=== PATIENT | female | born 1985 | race Caucasian/White ===

== ENCOUNTER → 2017-05-02 17:08 | Outpatient (REF) | payer MEDICAID, SELFPAY | LOC: LAB 17:08 | PROVIDERS: Visit Provider Nurse Practitioner Obstetrics & Gynecology | DX: Z34.90 Encounter for supervision of normal pregnancy, unspecified, unspecified trimester (principal) | CPT/HCPCS: 86403 ==

== ENCOUNTER 2017-05-15 01:19 | Inpatient (IN) ==
[2017-05-15 05:35] VITALS: BP 114/68
[2017-05-15 06:04] LABS: Basophils % 0.3 % (0.1-2.0); Eosinophils # 0.2 K/mm3 (0.0-0.4); Eosinophils % 1.8 % (0.1-12.0); Hematocrit 35.7 % (37.0-47.0); Hemoglobin 11.6 g/dL (12.2-16.2); Lymphocytes # 2.5 K/mm3 (0.7-4.5); Lymphocytes % 26.4 K/mm3 (10-50); Mean Corpuscular HGB Conc 32.4 g/dL (31.8-35.4); Mean Corpuscular Hemoglobin 29.4 pg (27.0-31.2); Mean Corpuscular Volume 90.6 fl (81-99); Mean Platelet Volume 9.8 fl (7.4-10.4); Monocytes # 0.5 K/mm3 (0.1-1.0); Monocytes % 5.7 % (1.7-9.3); Neutrophils # 6.2 K/mm3 (1.8-7.8); Neutrophils % 65.7 % (37.0-80.0); Platelet Count 236 K/mm3 (142-424); Red Blood Count 3.94 M/mm3 (4.20-5.40); Red Cell Distribution Width 13.2 % (11.5-17.5); White Blood Count 9.5 K/mm3 (4.8-10.8)
--- NOTE | 2017-05-15 07:51 | History & Physical Report ---
OB - H&P: HPI Antepartum - History of Present Illness Chief complaint: term - History of Present Criteria for establishing EDC:: LMP confirmed by 2nd trimester US care: good care Ultrasounds: normal 1st trimester US, normal mid trimester US Obstetrical complications: none, other Medical complications: none Planning to breastfeed?: No [facility] History I have reviewed the patient's past medical history: Yes Medical History: Denies:: Diabetes Mellitus Type 1, MRSA Other Surgeries: Yes: No Previous Surgery, Dilation and Curettage Amputation: No Fractures: No - *Social History Educational Level: Completed High School Smoking Status: Former smoker Tobacco Type: cigarettes # Packs/Day (cigarettes): 1 #Yrs smoked (if former smoker): 12 Alcohol Intake: never Alcohol Intake Frequency:: holidays/special occasions only Substance Use Type: former substance user Occupational Status: employed Household Members: significant other - Psychiatric History Expresses thoughts of harming self/others: None Suicide Plan Description: No Plan *Family Hx:: No significant family history, Cancer, Diabetes, Hypertension, Hyperlipidemia, Asthma, Heart Attack, Stroke [employer] history: Abnormal Uterine Bleeding, Spontaneous Para: 2 Review of Systems - Review of Systems Review of systems:: pertinent systems reviewed and negative unless documented below Meds Home Medications Medication Instructions Recorded Confirmed Type ferrous sulfate 325 mg (65 mg 325 mg PO DAILY tab 02/16/17 05/15/17 History iron) tablet 1 tab PO QDAY 02/16/17 05/15/17 History vitamin,calcium,bqwnfyhh-oztt-mfjho acid tablet Allergies Allergy/AdvReac Type Severity Reaction Status Date / Time Penicillins [PENICILLINS] Allergy Unknown I-HIVES Verified 04/17/17 10:06 OB - H&P: Exam - Physical Exam Vital signs: Temp Pulse Resp BP Pulse Ox 97.9 F 90 18 114/68 98 05/15/17 05:25 05/15/17 05:25 05/15/17 05:25 05/15/17 05:25 05/15/17 05:25 - Constitutional no acute distress OB - Results - Labs Labs: Short CBC 05/15/17 Range/Units 05:50 WBC 9.5 (4.8-10.8) K/mm3 Hgb 11.6 L (12.2-16.2) g/dL Hct 35.7 L (37.0-47.0) % Plt Count 236 (142-424) K/mm3 OB - A/P Antepartum - Additional Plan Plan: expectant management (She is having a few contractions we have started oxytocin)
--- NOTE | 2017-05-15 07:53 | Progress Note ---
Labor Note - Subjective: Date: 05/15/17 Time: 07:52 regular contraction - Objective: NST:: Reactive Contractions:: every 4-5 minutes Cervical Dilation:: 2-3 Effacement:: 75% Station: -1 Membranes: articially ruptured - Fetus: Monitoring?: Yes monitoring type:: Internal and External Comment:: IUPC inserted - Assessment: Labor progressing?: Yes Cephalopelvic disproportion?: No Patient Problems: All Active Problems (Acute) - Plan: Anesthesia for epidural?: No Continue to labor down?: Yes Plan for ?: No Continue to monitor?: Yes Start pushing?: No
[2017-05-15 08:26] LABS: Microscopic, Urine URINE MICROSCOPIC (MICROSCOPIC)
[2017-05-15 08:28] LABS: Appearance,Urine CLEAR (Clear); Bilirubin,Urine Negative (Negative); Blood, Urine Negative (Negative); Color,Urine YELLOW (Yellow); Glucose,Urine (UA) Negative (Negative); Ketones,Urine Negative (Negative); Leukocyte Esterase,Urine Negative (Negative); Protein,Urine Negative (Negative)
[2017-05-15 08:35] LABS: Amphetamine/Metha Screen,Urine Negative ng/mL (<1000); Barbiturates Screen,Urine Negative ng/mL (<200); Benzodiazepines Screen,Urine Negative ng/mL (200); Cannabinoid Screen,Urine Negative ng/mL (<50); Cocaine Screen,Urine Negative ng/g (<300); Methadone Screen,Urine Negative ng/mL (<300); Opiate Screen,Urine Negative ng/mL (<300); Phencyclidine Screen,Urine Negative ng/mL (<25)
[2017-05-15 08:50] LABS: Bacteria,Urine 2+ /lpf; Squamous Epithelial Cell,Urine 20-50 #/hpf (0-5)
--- NOTE | 2017-05-15 09:58 | Progress Note ---
[facility] Anesthesia Checklist - Patient Identification Patient Identification: Arm Band, Verbal (Name & ) - Structural Data Admitted From: Inpatient Planned Operative Procedure/s: labor epidural Consent for Planned Operative Procedure(s) Verified: Yes Verified Documents: Surgical Consent, History and Physical - Chart Verification Results Verified: CBC, BMP - Additional verifications Patient : Yes Anesthesia Reactions: No Hx Blood Transfusions: No Blood Transfusion Reaction: No Cephalosporin Allergy: No Previous Colonoscopy: No - Cardiovascular Assessment Heart Sounds: S1 & S2 Pulse Strength: Baseline Pulse Rhythm: Regular - Airway Assessment C-Spine Mobility Assessed: No TMJ Mobility Assessed: No Dentition: Good Dentition - Neurological Assessment Level of Consciousness: Awake, Alert, Appropriate Hx Seizures: No Numbness or tingling in extremities: No - Anesthesia Plan Anesthesia Risk discussed: Yes Anesthesia Plan: Verified ASA Class: II Anesthesia Type: Epidural [facility] Anesthesia HX I have reviewed the patient's past medical history: Yes Medical History: Denies:: Diabetes Mellitus Type 1, MRSA Other Surgeries: Yes: No Previous Surgery, Dilation and Curettage Amputation: No Fractures: No *Family Hx:: No significant family history, Cancer, Diabetes, Hypertension, Hyperlipidemia, Asthma, Heart Attack, Stroke
--- NOTE | 2017-05-15 10:28 | Progress Note ---
Labor Note - Subjective: Date: 05/15/17 Time: 10:27 regular contraction - Objective: NST:: Reactive Contractions:: every 2-3 minutes Cervical Dilation:: 4 Effacement:: 100% Station: -1 Membranes: articially ruptured - Fetus: Monitoring?: Yes monitoring type:: Internal and External - Assessment: Labor progressing?: Yes Cephalopelvic disproportion?: No Patient Problems: All Active Problems (Acute) - Plan: Anesthesia for epidural?: Yes Continue to labor down?: Yes Plan for ?: No Continue to monitor?: Yes Start pushing?: No
--- NOTE | 2017-05-15 13:37 | Progress Note ---
Labor Note - Subjective: Date: 05/15/17 Time: 13:36 regular contraction - Objective: NST:: Reactive Contractions:: every 2-3 minutes Cervical Dilation:: 8-9 Effacement:: 100% Station: 0 Membranes: articially ruptured - Fetus: Monitoring?: Yes monitoring type:: Internal - Assessment: Labor progressing?: Yes Cephalopelvic disproportion?: No Patient Problems: All Active Problems (Acute) - Plan: Anesthesia for epidural?: Yes Continue to labor down?: Yes Plan for ?: No Continue to monitor?: Yes Start pushing?: No
--- NOTE | 2017-05-15 16:05 | Progress Note ---
Labor Note - Subjective: Date: 05/15/17 Time: 16:04 regular contraction - Objective: Contractions:: every 2-3 minutes Cervical Dilation:: 9-10 Effacement:: 100% Station: 0 Membranes: articially ruptured - Fetus: Monitoring?: Yes monitoring type:: Internal - Assessment: Labor progressing?: Yes Cephalopelvic disproportion?: No Patient Problems: All Active Problems (Acute) - Plan: Anesthesia for epidural?: Yes Continue to labor down?: Yes Plan for ?: No Continue to monitor?: Yes Start pushing?: No Comment:: On examination I think the baby may be OP. We tried pushing a little bit and she does have an anterior lip she is able to push down somewhat but she is also quite numb so she does not feel a lot of urge to push. Tried turning the baby with my hand but was unable to do so. The baby also did not tolerated very well. We will see how she does over the next hour.
--- NOTE | 2017-05-15 17:49 | Progress Note ---
Labor Note - Subjective: Date: 05/15/17 Time: 17:47 regular contraction - Objective: NST:: Reactive Contractions:: every 2-3 minutes Cervical Dilation:: 9-10 Effacement:: 100% Station: +1 Membranes: articially ruptured - Fetus: Monitoring?: Yes monitoring type:: Internal - Assessment: Labor progressing?: Yes Cephalopelvic disproportion?: No Patient Problems: All Active Problems (Acute) - Plan: Anesthesia for epidural?: Yes Continue to labor down?: Yes Plan for ?: No Continue to monitor?: Yes Start pushing?: Yes Continue pushing?: Yes Comment:: We have started pushing and I think that the baby continues to be OP. It seems to have come down quite a bit. We will continue to manage her for expected vaginal delivery.
--- NOTE | 2017-05-15 18:12 | Procedure Note ---
- Delivery Note Delivery Date:: 05/15/17 Delivery Time:: 17:58 Anesthesia Type: Epidural Was labor medically induced?: No Infant delivered prior to 39 weeks?: No Infant Gender: Male at 1 minute: 8 at 5 minutes: 8 Delivery Procedure:: She is a 32-year-old 6 para 2 aborta 3 who was 39+ weeks gestational age. She was 3-4 cm dilated and as result of that we elected to augment her labor. She had IV oxytocin started in her membranes ruptured. Under labor epidural she progressed to full dilation and delivered spontaneously a liveborn male child at 5:58 PM in the evening of May 15, 2017. On deliver the head the anterior shoulder then delivered followed by the rest of the 's body atraumatically. Oropharynx and nasopharynx were bulb suctioned. The baby cried spontaneously. We allowed the cord to continue to pulsate for approximately 1 minute. We then doubly clamped the cord. The cord was then cut. The baby was then handed off to nurses who assigned Apgars of 8 at 1 minute and 8 at 5 minutes. We then obtained cord blood as well as cord pH. The patient received IV oxytocin and using gentle traction on the cord and countertraction on the fundus I was able to easily deliver the placenta intact. There were no perineal or vaginal lacerations. She has a positive blood, she is rubella nonimmune and was group A streptococcus negative. She plans to bottle feed. Her rhit is Dr. Arthur. Estimated blood loss was approximately 400 cc. Placental Delivery Description: Spontaneous
[2017-05-16 06:39] LABS: Hematocrit 33.7 % (37.0-47.0); Hemoglobin 10.7 g/dL (12.2-16.2)
--- NOTE | 2017-05-16 10:37 | Progress Note ---
Internal Medicine - PN: Subj *Date: 05/16/17 *Time: 10:36 Interval history: She is doing well this morning. She is eating and drinking and ambulating. She is bottlefeeding. Her lochia is normal. Exam Vital signs and Labs for Last 24 Hours: Temp Pulse Resp BP Pulse Ox 97.9 F 90 18 114/68 98 05/15/17 05:25 05/15/17 05:25 05/15/17 05:25 05/15/17 05:25 05/15/17 05:25 Laboratory Results - last 24 hr 05/15/17 07:30: Urine Color Yellow, Urine Appearance Clear, Urine pH 7.0, Ur Specific [place] 1.010, Urine Protein Negative, Urine Glucose (UA) Negative, Urine Ketones Negative, Urine Blood Negative, Urine Nitrate Negative, Urine Bilirubin Negative, Urine Urobilinogen 1.0, Ur Leukocyte Esterase Negative, Urine RBC None, Urine WBC 3-5, Ur Squamous Epith Cells 20-50, Urine Bacteria 2+ 05/15/17 18:07: Cord ABG pH 7.32 L 05/16/17 06:30: Hgb 10.7 L, Hct 33.7 L I & O for Last 24 hours: Intake & Output 05/13/17 05/14/17 05/15/17 05/16/17 11:59 11:59 11:59 11:59 Weight 194 lb Microbiology Reports for the Last 24 Hours: Microbiology 05/15/17 07:30 Urine,Clean Catch Urine Culture - Preliminary Gram Positive Cocci - Constitutional no acute distress Assessment and Plan - Assessment and plan all Dx Assessment and Plan for all problems:: She continues to do well. Her lochia is normal. We will plan to send her home tomorrow.
--- NOTE | 2017-05-17 08:11 | Discharge Summary ---
General - General Admission date: 05/15/17 Discharge date: 05/17/17 HPI HPI: She is a 32-year-old 6 now para 3 who is 39 weeks gestational age. She was having a few contractions and feeling pressure. As result of that we elected to augment her labor. Hospital Course Hospital Course: She delivered spontaneously a liveborn male child at 5:58 PM in the evening of May 15, 2017. The baby had Apgars of 8 at 1 and 8 at 5 minutes. She has done well and has remained afebrile throughout her hospitalization. She is eating and drinking and ambulating. She is bottlefeeding. Her lochia is normal. She has a positive blood, she is rubella nonimmune and will receive MMR prior to discharge. She was group B streptococcus negative. She will follow-up with me in 2 weeks time. She will continue with her vitamins and iron. Objective Vital signs: Temp Pulse Resp BP Pulse Ox 97.9 F 90 18 114/68 98 05/15/17 05:25 05/15/17 05:25 05/15/17 05:25 05/15/17 05:25 05/15/17 05:25 Results Labs on day of discharge: Labs from last 24 hours 05/15/17 07:30 Urine Color Yellow Urine Appearance Clear Urine pH 7.0 Ur Specific [place] 1.010 Urine Protein Negative Urine Glucose (UA) Negative Urine Ketones Negative Urine Blood Negative Urine Nitrate Negative Urine Bilirubin Negative Urine Urobilinogen 1.0 Ur Leukocyte Esterase Negative Urine RBC None Urine WBC 3-5 Ur Squamous Epith Cells 20-50 Urine Bacteria 2+ DS: Diagnosis - Discharge Diagnosis (1) Normal delivery at term Status: Acute Discharge Plan - Patient Discharge Instructions ACTIVITY: No heavy lifting DIET: continue same diet - Follow up Plan Disposition: Home, Self-Alf Medications: Home Medications Medication Instructions Recorded Confirmed Type ferrous sulfate 325 mg (65 mg 325 mg PO DAILY tab 02/16/17 05/15/17 History iron) tablet 1 tab PO QDAY 02/16/17 05/15/17 History vitamin,calcium,nsinwpaw-kfcj-irnfb acid tablet Prescriptions/Medication Reconciliation: Continue vitamin,calcium,ynfldthh-qana-oknkw acid tablet 1 tab PO QDAY ferrous sulfate 325 mg (65 mg iron) tablet 325 mg PO DAILY tab
== END 2017-05-17 10:20 | disposition home or self-care (01) ==
LOC: OB 04:58
PROVIDERS: ADMIT Nurse Practitioner Obstetrics & Gynecology; ATTEND Nurse Practitioner Obstetrics & Gynecology